=== PATIENT | female | born 1975 | race Caucasian/White ===

== ENCOUNTER 2017-04-14 12:03 | Emergency (ER) | payer SELFPAY ==
[~2017-04-14] VITALS: Ht 157.5 cm; Wt 67.0 kg
[~2017-04-14 12:03] MED LIST: LO ESTRIN
[2017-04-14 13:45] VITALS: BP 141/84
[2017-04-14 14:44] LABS: CLARITY URINE CLEAR (CLEAR); COLOR URINE DARK YELLOW (YELLOW); KETONES URINE TRACE (NEGATIVE); LEUKOCYTE ESTERASE URINE NEGATIVE (NEGATIVE); NITRITE URINE NEGATIVE (NEGATIVE); OCCULT BLOOD URINE NEGATIVE (NEGATIVE); PH URINE 5.5 (4.5-8.0); PROTEIN URINE NEGATIVE (NEGATIVE); SPECIFIC GRAVITY URINE 1.028 (1.005-1.030)
== END 2017-04-14 21:28 | disposition left against medical advice (07) ==
LOC: ER 12:48
DX: R10.9 Unspecified abdominal pain (principal); Z53.21 Procedure and treatment not carried out due to patient leaving prior to being seen by health care provider
CPT/HCPCS: 81001; 81025

== ENCOUNTER 2018-06-11 18:30 | Inpatient (IN) | payer SELFPAY ==
[~2018-06-11] VITALS: Ht 160 cm; Wt 71.2 kg
[2018-06-11] MEDS ORDERED: ASPIRIN 81MG TABLET PO ONE (19:30)
[2018-06-11 19:45] LABS: BASOPHILS % 0.6 % (0.0-2.0); EOSINOPHILS % 1.2 % (0.0-5.0); HEMATOCRIT. 42.1 % (36.0-48.0); HEMOGLOBIN. 14.7 g/dL (12.0-16.0); LYMPHOCYTES % 24.4 % (20.0-50.0); MEAN CORPUSCULAR VOLUME 88.9 fL (81.0-99.0); MEAN PLATELET VOLUME 7.6 fl (7.4-10.4); MONOCYTES % 4.9 % (2.0-8.0); NEUTROPHILS % 68.9 % (40.0-76.0); PLATELET 362 x1000/uL (130-400); RED BLOOD CELL COUNT 4.74 mill/uL (4.2-5.4); RED CELL DISTRIBUTION WIDTH 12.8 % (11.6-14.6)
[2018-06-11 19:53] LABS: CHLORIDE 106 mEq/L (98-107)
[2018-06-11] MEDS ORDERED: MAGNESIUM/ALUMINUM HYDROXIDE/SIMETHICONE 30ML UDC PO ONE (23:00)
[2018-06-11] MEDS ORDERED: VISCOUS LIDOCAINE 2% 15 ML UDC PO ONE (23:00)
[2018-06-11] MEDS ORDERED: KETOROLAC 30MG/ML VIAL IV ONE (23:15)
[2018-06-11] MEDS ORDERED: CLONIDINE 0.1MG TABLET PO PRN (23:30)
[2018-06-11] MEDS ORDERED: GUAIFENESIN 200MG/10ML SUGAR FREE UDC PO PRN (23:30)
[2018-06-11] MEDS ORDERED: ONDANSETRON HCL 4MG/2ML INJ IV PRN (23:30)
[2018-06-11] MEDS ORDERED: DOCUSATE SODIUM 100MG CAPSULE PO PRN (23:30)
[2018-06-11] MEDS ORDERED: MAGNESIUM/ALUMINUM HYDROXIDE/SIMETHICONE 30ML UDC PO PRN (23:30)
[2018-06-11] MEDS ORDERED: HYDROCODONE/ACETAMINOPHEN 10/325MG TABLET PO PRN (23:30)
[2018-06-11] MEDS ORDERED: IPRATROPIUM/ALBUTEROL 0.5-3(2.5)MG/3ML NEB INH PRN (23:30)
[2018-06-11] MEDS ORDERED: LORAZEPAM 2MG/ML CPJ IV PRN (23:30)
[2018-06-11] MEDS ORDERED: DIPHENHYDRAMINE 50MG/ML VIAL IV PRN (23:30)
[2018-06-11] MEDS ORDERED: ACETAMINOPHEN 325MG TABLET PO PRN (23:30)
[2018-06-12] VITALS (7 sets, daily range): BP systolic 92–114; BP diastolic 56–72
[2018-06-12 05:45] LABS: BASOPHILS % 0.6 % (0.0-2.0); EOSINOPHILS % 1.9 % (0.0-5.0); HEMATOCRIT. 40.1 % (36.0-48.0); HEMOGLOBIN. 13.8 g/dL (12.0-16.0); LYMPHOCYTES % 31.7 % (20.0-50.0); MEAN CORPUSCULAR HEMOGLOBIN 30.7 pg (28.0-32.0); MEAN CORPUSCULAR VOLUME 89.4 fL (81.0-99.0); MEAN PLATELET VOLUME 7.9 fl (7.4-10.4); MONOCYTES % 8.4 % (2.0-8.0); NEUTROPHILS % 57.4 % (40.0-76.0); PLATELET 358 x1000/uL (130-400); RED BLOOD CELL COUNT 4.49 mill/uL (4.2-5.4); RED CELL DISTRIBUTION WIDTH 12.8 % (11.6-14.6)
[2018-06-12 05:58] LABS: CHLORIDE 108 mEq/L (98-107)
[2018-06-12] MEDS: SODIUM CHLORIDE 0.9% INJ 3ML FLUSH IVF SCH ×3 (06:00→21:31)
[2018-06-12 06:07] LABS: CREATINE KINASE MB FRACTION < 1.0 ng/mL (0.5-3.6); LDL CHOLESTEROL 98 mg/dL (5-100)
[2018-06-12 06:08] LABS: CREATINE KINASE 71 IU/L (26-192); HDL CHOLESTEROL 37 mg/dL (40-59)
[2018-06-12 06:09] LABS: T4 FREE 1.27 ng/dL (0.76-1.46)
[2018-06-12] MEDS: ENOXAPARIN 40MG/0.4ML SYR SUBCUT SCH (09:58)
[2018-06-12 21:32] LABS: CREATINE KINASE 57 IU/L (26-192)
[2018-06-12 21:33] LABS: CREATINE KINASE MB FRACTION < 1.0 ng/mL (0.5-3.6)
[2018-06-13] VITALS: BP 109/71
[2018-06-13 04:00] VITALS: BP 106/61
[2018-06-13] MEDS: SODIUM CHLORIDE 0.9% INJ 3ML FLUSH IVF SCH ×2 (06:14→14:13)
[2018-06-13 08:00] VITALS: BP 108/68
[2018-06-13] MEDS: HYDROMORPHONE HCL/PF 2MG/ML CPJ IV PRN ×2 (08:46→16:06)
[2018-06-13] MEDS: ENOXAPARIN 40MG/0.4ML SYR SUBCUT SCH (08:47)
[2018-06-13 12:00] VITALS: BP 126/79
[2018-06-13 16:00] VITALS: BP 108/69
[2018-06-13 16:32] LABS: UCG SCREEN NEGATIVE
[2018-06-13 17:09] VITALS: BP 118/69
== END 2018-06-13 18:22 | disposition home or self-care (01) | DRG 198 ==
LOC: ER 19:28 → 7WST 23:04 → EDBEDREQ 23:05 → EDBEDREQTM 23:05 → ENRESERV 06-12 00:40
PROVIDERS: ADMIT Internal Medicine; ATTEND Internal Medicine
DX: R07.9 Chest pain, unspecified (principal); I25.10 Atherosclerotic heart disease of native coronary artery without angina pectoris; E78.00 Pure hypercholesterolemia, unspecified; E78.5 Hyperlipidemia, unspecified; I10 Essential (primary) hypertension; K21.9 Gastro-esophageal reflux disease without esophagitis; Z79.899 Other long term (current) drug therapy
CPT/HCPCS: 36415; 71045; 80061; 81025; 82550; 82553; 83880; 84439; 84443; 84484; 93005; 99285; J1650; J1885

== ENCOUNTER 2018-08-13 18:02 | Emergency (ER) | payer SELFPAY ==
[~2018-08-13] VITALS: Ht 160 cm; Wt 67.0 kg
[2018-08-13] MEDS ORDERED: KETOROLAC 30MG/ML VIAL IV STA (19:29)
[2018-08-13] MEDS ORDERED: CEFTRIAXONE 1 G PREMIX 50 ML IV ONE (19:30)
[2018-08-13 19:55] LABS: BASOPHILS % 0.5 % (0.0-2.0); EOSINOPHILS % 1.6 % (0.0-5.0); HEMATOCRIT. 41.1 % (36.0-48.0); HEMOGLOBIN. 14.3 g/dL (12.0-16.0); LYMPHOCYTES % 21.1 % (20.0-50.0); MEAN CORPUSCULAR HEMOGLOBIN 30.4 pg (28.0-32.0); MEAN CORPUSCULAR VOLUME 87.6 fL (81.0-99.0); MEAN PLATELET VOLUME 7.5 fl (7.4-10.4); MONOCYTES % 4.9 % (2.0-8.0); NEUTROPHILS % 71.9 % (40.0-76.0); PLATELET 366 x1000/uL (130-400); RED CELL DISTRIBUTION WIDTH 12.6 % (11.6-14.6)
[2018-08-13 19:59] LABS: CHLORIDE 107 mEq/L (98-107)
[2018-08-13 20:46] VITALS: BP 132/96
== END 2018-08-13 21:05 | disposition home or self-care (01) ==
LOC: ER 18:02
DX: L03.116 Cellulitis of left lower limb (principal)
CPT/HCPCS: 36415; 80053; 83605; 85025; 87040; 96365; 96375; 99283; J0696; J1885

== ENCOUNTER 2022-07-18 01:31 | Emergency (ER) | payer MEDICAID ==
[~2022-07-18] VITALS: Ht 160 cm; Wt 80.0 kg
[2022-07-18 03:33] LABS: BASOPHILS % 0.6 % (0.0-2.0); HEMATOCRIT. 38.6 % (36.0-48.0); HEMOGLOBIN. 13.5 g/dL (12.0-16.0); LYMPHOCYTES % 27.7 % (20.0-50.0); MEAN CORPUSCULAR HEMOGLOBIN 30.5 pg (28.0-32.0); MEAN CORPUSCULAR VOLUME 87.2 fL (81.0-99.0); MEAN PLATELET VOLUME 7.8 fl (7.4-10.4); NEUTROPHILS % 62.7 % (40.0-76.0); PLATELET 368 x1000/uL (130-400); RED BLOOD CELL COUNT 4.43 mill/uL (4.2-5.4); RED CELL DISTRIBUTION WIDTH 12.8 % (11.6-14.6)
[2022-07-18 03:36] LABS: CHLORIDE 106 mEq/L (98-107)
[2022-07-18] MEDS ORDERED: KETOROLAC 60MG/2ML VIAL IM ONE (05:30)
[2022-07-18 06:03] LABS: CLARITY URINE CLEAR (CLEAR); COLOR URINE YELLOW (YELLOW); KETONES URINE NEGATIVE (NEGATIVE); LEUKOCYTE ESTERASE URINE NEGATIVE (NEGATIVE); NITRITE URINE NEGATIVE (NEGATIVE); OCCULT BLOOD URINE TRACE (NEGATIVE); PH URINE 5.5 (4.5-8.0); PROTEIN URINE NEGATIVE (NEGATIVE); SPECIFIC GRAVITY URINE 1.023 (1.005-1.030); UROBILINOGEN URINE 0.2 E.U./dL (0.2-1.0)
[2022-07-18 07:30] VITALS: BP 106/58
[2022-07-18] MEDS ORDERED: METR-167 MT (07:52)
[2022-07-18] MEDS ORDERED: DOXY100C5 MT (07:52)
[2022-07-18] MEDS ORDERED: CEFTRIAXONE SODIUM 500 MG/VIAL IM ONE (08:00)
== END 2022-07-18 08:40 | disposition home or self-care (01) ==
LOC: ER 01:31
DX: N73.0 Acute parametritis and pelvic cellulitis (principal); K76.9 Liver disease, unspecified
CPT/HCPCS: 36415; 74176; 76830; 76856; 80053; 81003; 85025; 96372; 99285; J1885